=== PATIENT | male | born 1950 | race Caucasian/White ===

== ENCOUNTER → 2017-10-14 | Outpatient (CLI) | payer MEDICARE | END | disposition home or self-care (01) | LOC: CFH 12:21 | PROVIDERS: ATTEND Internal Medicine Cardiovascular Disease | DX: R07.9 Chest pain, unspecified (principal) | CPT/HCPCS: 78452; 93017; A9502 ==

== ENCOUNTER 2017-10-21 11:36 | Observation (INO) | payer MEDICARE ==
[~2017-10-21] VITALS: Ht 177.8 cm; Wt 93.6 kg
[2017-10-21] MEDS ORDERED: ASPIRIN 325 MG TABLET EC PO ONE (12:30)
[2017-10-21] MEDS ORDERED: NITR2.5C8 PO (12:33)
[2017-10-21] MEDS ORDERED: DOXA2TAB9 PO (12:33)
[2017-10-21] MEDS ORDERED: LOSA50TA6 PO (12:33)
[2017-10-21] MEDS ORDERED: MIDAZOLAM 1 MG/ML, 5ML ONE (12:50)
[2017-10-21] MEDS ORDERED: VERAPAMIL 2.5 MG/ML, 2ML ONE (12:50)
[2017-10-21] MEDS ORDERED: FENTANYL PF 100 MCG/2ML ONE (12:50)
[2017-10-21] MEDS ORDERED: TICAGRELOR 90 MG TABLET ONE (12:50)
[2017-10-21] MEDS ORDERED: LIDOCAINE-MPF 2%, 2ML ONE (12:50)
[2017-10-21] MEDS ORDERED: BIVALIRUDIN 250 MG ONE ×2 (12:51→15:01)
[2017-10-21] MEDS ORDERED: HEPARIN 1,000 UNITS/ML, 10ML ONE (12:51)
[2017-10-21 12:53] LABS: BASOPHILS # (AUTO) 0.01 x10^3/uL (0-0.1); BASOPHILS % (AUTO) 0 % (0-1); EOSINOPHILS # (AUTO) 0.06 x10^3/uL (0-0.4); EOSINOPHILS % (AUTO) 1 % (1-7); LYMPHOCYTES # (AUTO) 1.66 x10^3/uL (1-3.4); LYMPHOCYTES % (AUTO) 32 % (22-44); MD NO; MEAN CORPUSCULAR HEMOGLOBIN 32.6 pg (27.5-34.5); MEAN CORPUSCULAR HGB CONC 34.8 g/dL (33.2-36.2); MEAN CORPUSCULAR VOLUME 93.6 fL (81-97); MEAN PLATELET VOLUME 7.8 fL (7.4-10.4); MONOCYTES # (AUTO) 0.39 x10^3/uL (0.2-0.8); MONOCYTES % (AUTO) 8 % (2-9); NEUTROPHILS # (AUTO) 2.99 x10^3/uL (1.8-6.8); NEUTROPHILS % (AUTO) 59 % (42-75); PLATELET COUNT 237 x10^3/uL (130-400); RED BLOOD COUNT 4.52 x10^6/uL (4.38-5.82); RED CELL DISTRIBUTION WIDTH 13.1 % (9.4-14.8)
[2017-10-21] MEDS ORDERED: CLOPIDOGREL 300 MG TABLET ONE (12:53)
[2017-10-21] MEDS ORDERED: DIPHENHYDRAMINE 50 MG/ML, 1ML ONE (13:54)
[2017-10-21] MEDS ORDERED: PRASUGREL 10 MG TABLET ONE (15:01)
[2017-10-21] MEDS ORDERED: EPTIFIBATIDE 100 ML IV SCH (15:39)
[2017-10-21] MEDS ORDERED: ONDANSETRON 2MG/ML, 2ML IVPush PRN (16:00)
[2017-10-21] MEDS ORDERED: ACETAMINOPHEN 325 MG TABLET PO PRN (16:00)
[2017-10-21] MEDS ORDERED: ZOLPIDEM 5MG TABLET PO PRN (16:00)
[2017-10-21] MEDS ORDERED: BIVALIRUDIN 250 MG in DEXTROSE 5% 50 ML IV SCH (16:24)
[2017-10-21] MEDS ORDERED: PLEASE ENTER HEIGHT AND WEIGHT MC SCH (16:30)
[2017-10-21] MEDS ORDERED: ASPIRIN 325 MG TABLET EC ONE (18:31)
[2017-10-21 21:36] VITALS: BP 126/75
[2017-10-21] MEDS: LOSARTAN 50MG TABLET PO SCH (21:40)
[2017-10-21] MEDS: DOXAZOSIN 2MG TABLET PO SCH (21:41)
[2017-10-22 02:36] VITALS: BP 145/67
[2017-10-22 05:04] LABS: ALBUMIN 3.5 g/dL (3.4-5.0); ANION GAP 8 mmol/L (5-15); CALCIUM 8.4 mg/dL (8.5-10.1); CHLORIDE 109 mmol/L (98-107)
[2017-10-22 05:05] LABS: CREATININE 1.03 mg/dL (0.7-1.3)
[2017-10-22] MEDS ORDERED: ASPI-496 PO (08:11)
[2017-10-22] MEDS ORDERED: PRAS10TA4 PO (08:11)
[2017-10-22] MEDS: LOSARTAN 50MG TABLET PO SCH (08:42)
[2017-10-22] MEDS: DOXAZOSIN 2MG TABLET PO SCH (08:45)
[2017-10-22] MEDS ORDERED: PRASUGREL 10 MG TABLET PO SCH (09:00)
[2017-10-22] MEDS ORDERED: LOSARTAN 50MG TABLET PO SCH (09:00)
[2017-10-22] MEDS ORDERED: DOXAZOSIN 2MG TABLET PO SCH (09:00)
[2017-10-22 09:51] VITALS: BP 113/67
== END 2017-10-22 11:00 | disposition home or self-care (01) ==
LOC: CACL 11:36 → ORIP 15:39 → CACL 15:39 → 5SO 15:45 → DCLOUNGE 10-22 10:48
PROVIDERS: ADMIT Internal Medicine Cardiovascular Disease; ATTEND Internal Medicine Cardiovascular Disease
DX: I25.119 Atherosclerotic heart disease of native coronary artery with unspecified angina pectoris (principal); I10 Essential (primary) hypertension; E78.5 Hyperlipidemia, unspecified; E78.00 Pure hypercholesterolemia, unspecified; R73.9 Hyperglycemia, unspecified; R01.1 Cardiac murmur, unspecified; R07.9 Chest pain, unspecified
CPT/HCPCS: 36415; 80048; 82040; 85014; 85018; 85025; 93005; 93458; 99156; 99157; C1725; C1769; C1874; C1887; C1894; C9600; C9601; G0378; J0583; J1200; J1644; J2250; J3010; J3490; Q9967

== ENCOUNTER → 2018-08-12 | Outpatient (CLI) | payer MEDICARE ==
[~2018-08-12] MED LIST: ASPI-496 PO; DOXA2TAB9 PO; FINA5TAB4 PO; LOSA50TA14 PO; MULT-508 PO; NITR2.5C8 PO; PRAS10TA4 PO; SIMV40TA3 PO
[2018-08-12 15:40] LABS: BASOPHILS # (AUTO) 0.03 x10^3/uL (0-0.1); BASOPHILS % (AUTO) 0 % (0-1); EOSINOPHILS # (AUTO) 0.01 x10^3/uL (0-0.4); EOSINOPHILS % (AUTO) 0 % (1-7); LYMPHOCYTES # (AUTO) 1.18 x10^3/uL (1-3.4); LYMPHOCYTES % (AUTO) 12 % (22-44); MD NO; MEAN CORPUSCULAR HEMOGLOBIN 32.6 pg (27.5-34.5); MEAN CORPUSCULAR HGB CONC 33.6 g/dL (33.2-36.2); MEAN CORPUSCULAR VOLUME 96.9 fL (81-97); MEAN PLATELET VOLUME 8.1 fL (7.4-10.4); MONOCYTES # (AUTO) 0.53 x10^3/uL (0.2-0.8); MONOCYTES % (AUTO) 5 % (2-9); NEUTROPHILS # (AUTO) 8.43 x10^3/uL (1.8-6.8); NEUTROPHILS % (AUTO) 83 % (42-75); PLATELET COUNT 215 x10^3/uL (130-400); RED CELL DISTRIBUTION WIDTH 12.6 % (9.4-14.8)
[2018-08-12 15:47] LABS: ANION GAP 6 mmol/L (5-15); CALCIUM 8.6 mg/dL (8.5-10.1); CHLORIDE 106 mmol/L (98-107); CREATININE 0.98 mg/dL (0.7-1.3)
== END | disposition home or self-care (01) ==
LOC: CFH 07:57
PROVIDERS: ATTEND Physician Assistant
DX: E78.00 Pure hypercholesterolemia, unspecified (principal); I10 Essential (primary) hypertension; I99.8 Other disorder of circulatory system; R07.9 Chest pain, unspecified; R01.1 Cardiac murmur, unspecified
CPT/HCPCS: 36415; 78452; 80048; 85025; 93017; A9502

== ENCOUNTER 2018-08-13 11:01 | Observation (INO) | payer MEDICARE ==
[~2018-08-13] VITALS: Ht 177.8 cm; Wt 101.0 kg
[~2018-08-13 11:01] MED LIST changes: -FINA5TAB4 PO; -MULT-508 PO; -SIMV40TA3 PO
[2018-08-13 12:34] VITALS: BP 137/80
[2018-08-13] MEDS ORDERED: MULT-508 PO (12:40)
[2018-08-13] MEDS ORDERED: SIMV40TA3 PO (12:40)
[2018-08-13] MEDS ORDERED: FINA5TAB4 PO (12:40)
[2018-08-13] MEDS ORDERED: NITROGLYCERIN 5 MG/ML, 10ML ONE (13:16)
[2018-08-13] MEDS ORDERED: MIDAZOLAM 1 MG/ML, 5ML ONE (13:16)
[2018-08-13] MEDS ORDERED: VERAPAMIL 2.5 MG/ML, 2ML ONE (13:16)
[2018-08-13] MEDS ORDERED: FENTANYL PF 100 MCG/2ML ONE (13:16)
[2018-08-13] MEDS ORDERED: LIDOCAINE-MPF 1%, 5ML ONE (13:17)
[2018-08-13] MEDS ORDERED: HEPARIN 1,000 UNITS/ML, 10ML ONE (13:17)
[2018-08-13] MEDS ORDERED: BIVALIRUDIN 250 MG ONE (13:59)
[2018-08-13] MEDS ORDERED: PRASUGREL 10 MG TABLET ONE (14:23)
[2018-08-13] MEDS: SODIUM CHLORIDE 0.9% 1,000 ML IV SCH ×2 (14:26→22:26)
[2018-08-13] MEDS ORDERED: NITROGLYCERIN 2.5 MG CAPSULE.ER PO PRN (14:30)
[2018-08-13 20:21] VITALS: BP 127/72
[2018-08-13] MEDS ORDERED: SIMVASTATIN 20 MG TABLET PO SCH (21:00)
[2018-08-13] MEDS ORDERED: DOXAZOSIN 2MG TABLET PO SCH (21:00)
[2018-08-13 21:26] VITALS: BP 105/58
[2018-08-14 00:27] VITALS: BP 125/72
[2018-08-14 00:29] VITALS: BP 125/72
[2018-08-14 04:59] LABS: ANION GAP 7 mmol/L (5-15); CALCIUM 8.6 mg/dL (8.5-10.1); CHLORIDE 111 mmol/L (98-107); CREATININE 0.94 mg/dL (0.7-1.3)
[2018-08-14] MEDS: SODIUM CHLORIDE 0.9% 1,000 ML IV SCH (05:15)
[2018-08-14 07:27] VITALS: BP 121/62
[2018-08-14] MEDS ORDERED: DOXAZOSIN 2MG TABLET PO SCH (09:00)
[2018-08-14] MEDS ORDERED: MULTIVITAMIN 1 TABLET PO SCH (09:00)
[2018-08-14] MEDS ORDERED: PRASUGREL 10 MG TABLET PO SCH (09:00)
[2018-08-14] MEDS ORDERED: FINASTERIDE 5 MG TABLET PO SCH (09:00)
[2018-08-14] MEDS ORDERED: ASPIRIN 81 MG TABLET EC PO SCH (09:00)
== END 2018-08-14 09:37 | disposition home or self-care (01) ==
LOC: CACL 11:01 → 5SO 15:01 → CACL 22:17 → 5SO 22:17 → DCLOUNGE 08-14 09:29
PROVIDERS: ADMIT Internal Medicine Cardiovascular Disease; ATTEND Internal Medicine Cardiovascular Disease
DX: I25.10 Atherosclerotic heart disease of native coronary artery without angina pectoris (principal); I10 Essential (primary) hypertension; E78.5 Hyperlipidemia, unspecified; G47.30 Sleep apnea, unspecified; R73.9 Hyperglycemia, unspecified; E78.00 Pure hypercholesterolemia, unspecified; Z79.82 Long term (current) use of aspirin; Z88.8 Allergy status to other drugs, medicaments and biological substances
CPT/HCPCS: 36415; 71048; 80048; 85014; 85018; 93005; 93458; 99156; 99157; C1725; C1769; C1874; C1887; C1894; C9600; G0378; J0583; J1644; J2250; J3010; Q9967

== ENCOUNTER → 2020-01-06 | Outpatient (CLI) | payer MEDICARE ==
[~2020-01-06] MED LIST changes: +ASPI81TA45 PO; +CLOM50TA17 PO; +DOXA8TAB63 PO; +FINA5TAB4 PO; +MELA5TAB14 PO; +MULT-508 PO; +SIMV20TA19 PO; +SIMV40TA20 PO
[2020-01-06 09:19] LABS: ALANINE AMINOTRANSFERASE 23 U/L (12-78); ALBUMIN 3.9 g/dL (3.4-5.0); ANION GAP 5 mmol/L (5-15); CHLORIDE 110 mmol/L (98-107); CREATININE 1.05 mg/dL (0.7-1.3)
[2020-01-06 09:21] LABS: ALKALINE PHOSPHATASE 59 U/L (45-117); BILIRUBIN,TOTAL 0.5 mg/dL (0.2-1.0); TOTAL PROTEIN 7.3 g/dL (6.4-8.2)
== END | disposition home or self-care (01) ==
LOC: STAR 08:03
PROVIDERS: ATTEND Surgery
DX: Z01.812 Encounter for preprocedural laboratory examination (principal); K40.90 Unilateral inguinal hernia, without obstruction or gangrene, not specified as recurrent; Z20.828 Contact with and (suspected) exposure to other viral communicable diseases
CPT/HCPCS: 36415; 80053; 87635; 93005

== ENCOUNTER 2020-01-11 09:25 | Day surgery (SDC) | payer MEDICARE ==
[~2020-01-11] VITALS: Ht 177.8 cm; Wt 106.3 kg
[~2020-01-11 09:25] MED LIST changes: +EPHEDRINE 50 MG/ML, 1ML IVPush PRN; +FENTANYL PF 100 MCG/2ML IV PRN; +HYDROmorphone 1 MG/ML, 1ML INJ IVPush PRN; +MEPERIDINE/PF 25MG/0.5ML IVPush PRN; +ONDANSETRON 2MG/ML, 2ML IVPush PRN; +OXYcodone 5 MG/5 ML ORAL.SOL UDC PO PRN; +PROMETHAZINE 25 MG/ML, 1ML IVPush PRN; +hydrALAzine 20 MG/ML, 1ML IV PRN
[2020-01-11 09:43] VITALS: BP 125/73
[2020-01-11] MEDS ORDERED: BUPIVACAINE/PF 0.5% ONE (09:44)
[2020-01-11] MEDS ORDERED: EPINEPHRINE 1 MG/ML, 1ML ONE (09:44)
[2020-01-11] MEDS: LACTATED RINGERS 1,000 ML IV SCH ×2 (09:54→09:59)
[2020-01-11] MEDS ORDERED: CHLORHEXIDINE 15 ML UDC MM ONE (10:00)
[2020-01-11] MEDS ORDERED: ACETAMINOPHEN 500 MG TABLET PO ONE (10:00)
[2020-01-11] MEDS ORDERED: FENTANYL PF 250 MCG/5ML ONE (10:43)
[2020-01-11] MEDS ORDERED: MIDAZOLAM 1 MG/ML, 2ML ONE (10:43)
[2020-01-11] MEDS ORDERED: ONDANSETRON 2MG/ML, 2ML ONE (11:27)
[2020-01-11] MEDS ORDERED: SUCCINYLCHOLINE 20 MG/ML, 10ML ONE (11:27)
[2020-01-11] MEDS ORDERED: PROPOFOL 10 MG/ML, 20ML ONE (11:27)
[2020-01-11] MEDS ORDERED: CEFAZOLIN 1,000 MG ONE (11:27)
[2020-01-11] MEDS ORDERED: ROCURONIUM 10MG/ML,5ML ONE (11:27)
[2020-01-11] MEDS ORDERED: DEXAMETHASONE 4 MG/ML, 1ML ONE (11:27)
[2020-01-11] MEDS ORDERED: KETOROLAC 30 MG/1 ML ONE (11:41)
[2020-01-11] MEDS ORDERED: GLYCOPYRROLATE 0.2MG/1ML, 5ML ONE (11:49)
[2020-01-11] MEDS ORDERED: SUGAMMADEX 200 MG/2 ML IVPush ONE (12:19)
[2020-01-11] MEDS ORDERED: OXYcodone 5 MG/5 ML ORAL.SOL UDC ONE (12:37)
[2020-01-11] MEDS ORDERED: FENTANYL PF 100 MCG/2ML ONE (12:37)
== END 2020-01-11 14:10 | disposition home or self-care (01) ==
LOC: OUT 09:25
PROVIDERS: ATTEND Surgery
DX: K40.90 Unilateral inguinal hernia, without obstruction or gangrene, not specified as recurrent (principal); I10 Essential (primary) hypertension; E78.5 Hyperlipidemia, unspecified; E66.9 Obesity, unspecified; Z88.1 Allergy status to other antibiotic agents; Z98.52 Vasectomy status; Z95.818 Presence of other cardiac implants and grafts; Z88.8 Allergy status to other drugs, medicaments and biological substances; Z98.890 Other specified postprocedural states; Z79.899 Other long term (current) drug therapy; Z72.89 Other problems related to lifestyle; Z98.41 Cataract extraction status, right eye; Z98.42 Cataract extraction status, left eye; Z68.33 Body mass index [BMI] 33.0-33.9, adult; Z79.82 Long term (current) use of aspirin; Z82.49 Family history of ischemic heart disease and other diseases of the circulatory system
CPT/HCPCS: 49650; C1781; J0171; J0330; J0690; J1100; J1885; J2250; J2405; J2704; J3010; J7120

== ENCOUNTER → 2020-09-17 | Outpatient (CLI) | payer MEDICARE, OTHER ==
[~2020-09-17] MED LIST changes: -EPHEDRINE 50 MG/ML, 1ML IVPush PRN; -FENTANYL PF 100 MCG/2ML IV PRN; -HYDROmorphone 1 MG/ML, 1ML INJ IVPush PRN; -MEPERIDINE/PF 25MG/0.5ML IVPush PRN; -ONDANSETRON 2MG/ML, 2ML IVPush PRN; -OXYcodone 5 MG/5 ML ORAL.SOL UDC PO PRN; -PROMETHAZINE 25 MG/ML, 1ML IVPush PRN; -hydrALAzine 20 MG/ML, 1ML IV PRN
== END | disposition home or self-care (01) ==
LOC: CFH 10:27
PROVIDERS: ATTEND Internal Medicine Cardiovascular Disease
DX: I08.0 Rheumatic disorders of both mitral and aortic valves (principal); I11.9 Hypertensive heart disease without heart failure; E78.5 Hyperlipidemia, unspecified; I25.10 Atherosclerotic heart disease of native coronary artery without angina pectoris
CPT/HCPCS: 93306; 93356